=== PATIENT | female | born 1975 | race Caucasian/White ===

== ENCOUNTER 2017-09-06 11:49 | Emergency (ER) | payer OTHER ==
--- NOTE | 2017-09-06 12:21 | CPEKG ---
Heart Rate: 66 RR Interval: 909 P-R Interval: 168 QRSD Interval: 90 QT Interval: 408 QTC Interval: 428 P Revere: 49 QRS Revere: 54 T Wave Revere: 2 EKG Severity - NORMAL ECG - EKG Impression: SINUS RHYTHM Electronically Signed By: Angelia Nielson 06-Sep-2017 20:00:58
[2017-09-06] MEDS ORDERED: KETOROLAC 15 MG/1 ML SDV IVP ONE (13:19)
--- NOTE | 2017-09-06 13:23 | EDPHY ---
H & P Time Seen by Provider: 09/06/17 12:57 HPI/ROS: CHIEF COMPLAINT: Right-sided chest pain HISTORY OF PRESENT ILLNESS: This is a healthy 42-year-old female who states that for the last month she has had intermittent upper respiratory infection symptoms with nasal congestion, dry cough, runny nose. No sore throat. No fever. She does state that at times 2 feel like she was improving and then she would develop recurrent symptoms. 2 days ago, after skiing for the preceding 2 days, she woke up feeling relatively fatigued which was unusual for her. Yesterday when she woke up she noticed right-sided chest discomfort especially when she takes a deep breath. She also was quite fatigued and short of breath with minimal exertion. Discomfort occasionally radiates into the right side of her neck. She went to urgent care today had chest x-ray which was interpreted as negative. She was referred here for further evaluation. The patient has no cardiac risk factors: No history of diabetes, hypercholesterolemia, hypertension, family history, and no personal history of coronary artery disease. She is not a smoker patient does not use illicit drugs. She has no risk factors for pulmonary embolism. No estrogen use. No family history or personal history of DVTs or PEs. No prolonged immobilization. Back she is quite active. No fever, chills, palpitations, vomiting, diarrhea, urinary complaints, headache , lightheadedness. REVIEW OF SYSTEMS: Aside from elements discussed in the HPI, a comprehensive 10-point review of systems was reviewed and is negative. PAST MEDICAL HISTORY: Patient denies. SOCIAL HISTORY: Nonsmoker. . VITAL SIGNS Reviewed by me. GENERAL: Well-developed, well-nourished, resting comfortably in no respiratory distress. Pleasant. Reports some discomfort at rest. Very mild right-sided chest discomfort with a deep breath. HEENT: Atraumatic. Eyes: No icterus, no injection. Mouth: moist mucous membranes. No erythema or lesions. Neck: supple with no adenopathy. LUNGS: Clear to auscultation bilaterally, no wheezes, rhonchi or rales. CARDIAC: Regular rate and rhythm, no rubs, murmurs or gallops. ABDOMEN: Soft, nontender, nondistended, bowel sounds normal. BACK: No CVA tenderness. EXTREMITIES: No trauma. No edema. Range of motion is normal throughout. NEURO: Alert and oriented, grossly nonfocal. SKIN: Warm and dry, no rash. PSYCHIATRIC: Normal mentation, no agitation. Smoking Status: Former smoker Constitutional: Initial Vital Signs Temperature (C) 37 C 09/06/17 11:53 Heart Rate 73 09/06/17 11:53 Respiratory Rate 20 09/06/17 11:53 Blood Pressure 137/82 H 09/06/17 11:53 O2 Sat (%) 96 09/06/17 11:53 O2 Delivery Mode Room Air Allergies/Adverse Reactions: No Known Allergies Allergy (Unverified 09/06/17 11:52) Home Medications: Medication Instructions Recorded Bupropion HCl [Wellbutrin 200mg SR] 200 mg PO 07/11/12 ALPRAZolam [Xanax 0.5 MG (RX)] 05/14/14 Lactobacillus Acidophilus 05/14/14 [Probiotic] [place]-3 Fatty Acids [Fish Oil] 05/14/14 Albuterol Hfa Anes Only [Proair 2 puffs IH QID #1 mdi 09/06/17 Hfa Icu (*)] Medical Decision Making - Diagnostics EKG Interpretation: 12-LEAD EKG: Please see the full report in [facility]. My interpretation: Sinus rhythm, no ST or T-wave changes. Imaging Results: Chest x-ray from outside institution: Increased peribronchial markings, no pneumonia. No pneumothorax. ED Course/Re-evaluation: 41-year-old female, healthy, no cardiac or PE risk factors, presenting with right-sided chest discomfort which is mild. Worse when she takes a deep breath. Also reports feeling fatigued and somewhat short of breath. Evaluation initially included a chest x-ray which was negative for any effusion , or obvious pneumonia. Patient was referred to the emergency department for further evaluation. EKG is nonischemic. Troponin is negative. Patient's D-dimer is slightly elevated at 0.71. Of note she is status post kidney donation and has a creatinine of 1.1. Utilizing the perc scoring system for pulmonary embolism, the patient is perc negative. I sat down held a discussion with the patient regarding the findings. She has no risk factors for a pulmonary embolism, is perc negative, and has a alternative diagnosis which I feels much more likely than a pulmonary embolism. She did have a D-dimer ordered as part of her evaluation for pleuritic chest pain, which is slightly elevated. However, the patient has 1 kidney and a creatinine of 1.1. I believe that the risk associated with CT in the patient with IV contrast to further evaluate for pulmonary embolism far outweighs the clinical diagnosis of pleurisy. The patient is comfortable with a plan of treatment for pleurisy. All of her questions were answered. She will be started on a meter dose inhaler, encouraged to use Tylenol for her pleuritic pain, she declined steroids and she declined ibuprofen. She understands that she should follow up with her primary care physician if this is not controlling her symptoms. She understands that should she develop worsening pain, lightheadedness, fainting, elevated heart rate, elevated respiratory rate, anxiety, or persistent or worsening shortness of breath you should return to the emergency department Differential Diagnosis: After history and physical examination, the differential for chest pain was considered, including but not limited to, myocardial ischemia, acute coronary syndrome, pulmonary embolus, chest wall pain, pleural inflammation and pulmonary infectious causes. - Data Points Laboratory Results: Laboratory Results 09/06/17 13:20 09/06/17 13:20 09/06/17 09/06/17 09/06/17 13:20 13:20 13:20 WBC RBC Hgb Hct MCV MCH MCHC RDW Plt Count MPV Neut % (Auto) Lymph % (Auto) [place] % (Auto) Eos % (Auto) Baso % (Auto) Nucleat RBC Rel Count Absolute Neuts (auto) Absolute Lymphs (auto) Absolute Monos (auto) Absolute Eos (auto) Absolute Basos (auto) Absolute Nucleated RBC Immature Gran % Immature Gran # D-Dimer 0.74 ug/mLFEU H ug/mLFEU (0.00-0.50) Sodium 142 mEq/L mEq/L (135-145) Potassium 4.5 mEq/L mEq/L (3.5-5.2) Chloride 108 mEq/L mEq/L (97-110) Carbon Dioxide 21 mEq/l L mEq/l (22-31) Anion Gap 13 mEq/L mEq/L (8-16) BUN 9 mg/dL mg/dL (7-23) Creatinine 1.1 mg/dL H mg/dL (0.6-1.0) Estimated GFR 54 Glucose 89 mg/dL mg/dL (70-100) Calcium 9.4 mg/dL mg/dL (8.5-10.4) Troponin I < 0.012 ng/mL ng/mL (0.000-0.034) Beta HCG, Qual NEGATIVE 09/06/17 13:20 WBC 6.71 10^3/uL 10^3/uL (3.80-9.50) RBC 4.15 10^6/uL L 10^6/uL (4.18-5.33) Hgb 13.7 g/dL g/dL (12.6-16.3) Hct 39.5 % % (38.0-47.0) MCV 95.2 fL fL (81.5-99.8) MCH 33.0 pg pg (27.9-34.1) MCHC 34.7 g/dL g/dL (32.4-36.7) RDW 12.3 % % (11.5-15.2) Plt Count 283 10^3/uL 10^3/uL (150-400) MPV 9.8 fL fL (8.7-11.7) Neut % (Auto) 67.1 % % (39.3-74.2) Lymph % (Auto) 21.8 % % (15.0-45.0) [place] % (Auto) 8.0 % % (4.5-13.0) Eos % (Auto) 1.8 % % (0.6-7.6) Baso % (Auto) 0.7 % % (0.3-1.7) Nucleat RBC Rel Count 0.0 % % (0.0-0.2) Absolute Neuts (auto) 4.50 10^3/uL 10^3/uL (1.70-6.50) Absolute Lymphs (auto) 1.46 10^3/uL 10^3/uL (1.00-3.00) Absolute Monos (auto) 0.54 10^3/uL 10^3/uL (0.30-0.80) Absolute Eos (auto) 0.12 10^3/uL 10^3/uL (0.03-0.40) Absolute Basos (auto) 0.05 10^3/uL 10^3/uL (0.02-0.10) Absolute Nucleated RBC 0.00 10^3/uL 10^3/uL (0-0.01) Immature Gran % 0.6 % % (0.0-1.1) Immature Gran # 0.04 10^3/uL 10^3/uL (0.00-0.10) D-Dimer Sodium Potassium Chloride Carbon Dioxide Anion Gap BUN Creatinine Estimated GFR Glucose Calcium Troponin I Beta HCG, Qual Medications Given: Discontinued Medications Acetaminophen (Tylenol) 650 mg PO EDNOW ONE Stop: 09/06/17 14:11 Last Admin: 09/06/17 14:19 Dose: 650 mg Albuterol (Proventil Neb) 3 ml IH EDNOW ONE Stop: 09/06/17 14:51 Last Admin: 09/06/17 14:54 Dose: 3 ml Ketorolac Tromethamine (Toradol) 15 mg IVP EDNOW ONE Stop: 09/06/17 13:20 Last Admin: 09/06/17 13:59 Dose: Not Given Departure - Departure Disposition: Home, Routine, Self-Care Clinical Impression: Pleuritic chest pain Condition: Good Instructions: Pleurisy (ED) Additional Instructions: Your evaluation the emergency department does not demonstrate any pneumonia, collapsed lung, or fluid in your lung. You do have a slightly elevated screening tests for a blood clot (ddimer), however your PERC score is negative. (The PERC score is utilized to indicate which patient's should undergo further testing with the D-dimer.) I do not believe that we should proceed with a CT scan of your chest to evaluate for pulmonary embolism as this will require IV contrast and you have only 1 kidney. Please use Tylenol as needed for your discomfort. Please use the meter dose inhaler as directed, 2-4 puffs 3 to 4 times a day to help with any cough, or chest discomfort. If the symptoms are not improving with our treatment or if you are getting worse , please return to the emergency department immediately. Referrals: Savannah Snowden PA [Primary Care Provider] - As per Instructions Prescriptions: Albuterol Hfa Anes Only [Proair Hfa Icu (*)] 2 puffs IH QID #1 mdi
[2017-09-06 13:31] LABS: PLATELET COUNT 283 10^3/uL (150-400)
[2017-09-06] MEDS ORDERED: ACETAMINOPHEN 325 MG TAB PO ONE (14:10)
[2017-09-06 14:13] VITALS: RESP 18
[2017-09-06] MEDS ORDERED: ALBUTEROL 3 ML DEYVIAL IH ONE (14:50)
[2017-09-06 15:00] VITALS: BP 131/74; PULSE 70; TEMP 98.6; O2SAT 95
== END 2017-09-06 15:05 | disposition home or self-care (01) ==
DX: R07.89 Other chest pain (principal); Z87.891 Personal history of nicotine dependence
CPT/HCPCS: J1885; J7613